=== PATIENT | female | born 1975 | race Caucasian/White ===

== ENCOUNTER → 2017-09-27 | Outpatient (CLI) | payer OTHER ==
[~2017-09-27] MED LIST: BIRTH CONTROL; CYCL10TA50
== END | disposition home or self-care (01) ==
LOC: CFH 10:23
PROVIDERS: ATTEND Nurse Practitioner Family
DX: Z12.31 Encounter for screening mammogram for malignant neoplasm of breast (principal)
CPT/HCPCS: G0202

== ENCOUNTER → 2017-10-22 | Outpatient (CLI) | payer OTHER | END | disposition home or self-care (01) | LOC: CFH 11:26 | PROVIDERS: ATTEND Obstetrics & Gynecology | DX: N80.9 Endometriosis, unspecified (principal); N91.2 Amenorrhea, unspecified | CPT/HCPCS: 76830 ==

== ENCOUNTER 2018-11-18 13:13 | Outpatient (CLI) | payer OTHER | END 2018-11-18 23:59 | disposition home or self-care (01) | LOC: CFH 13:13 | PROVIDERS: ATTEND Physician Assistant | DX: N64.4 Mastodynia (principal) | CPT/HCPCS: G0279; 77066 ==

== ENCOUNTER → 2020-07-02 | Outpatient (CLI) | payer OTHER | END | disposition home or self-care (01) | LOC: CVU 06:47 | PROVIDERS: ATTEND Internal Medicine Cardiovascular Disease | DX: I08.0 Rheumatic disorders of both mitral and aortic valves (principal) | CPT/HCPCS: 93306 ==

== ENCOUNTER → 2020-10-07 | Outpatient (CLI) | payer OTHER | END | disposition home or self-care (01) | LOC: CFH 07:02 | PROVIDERS: ATTEND Obstetrics & Gynecology | DX: Z12.31 Encounter for screening mammogram for malignant neoplasm of breast (principal); Z12.39 Encounter for other screening for malignant neoplasm of breast | CPT/HCPCS: 76641; 77063; 77067 ==

== ENCOUNTER 2020-10-30 11:35 | Emergency (ER) | payer OTHER ==
[~2020-10-30] VITALS: Ht 162.6 cm; Wt 101.7 kg
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
--- NOTE | 2020-10-30 12:01 | NUR ---
ERP DR. STANLEY AT BEDSIDE FOR RE-EVAL.
[2020-10-30] MEDS ORDERED: METHOCARBAMOL 750 MG TABLET ONE (12:18)
[2020-10-30] MEDS ORDERED: KETOROLAC 30 MG/1 ML ONE (12:18)
[2020-10-30] MEDS ORDERED: METHOCARBAMOL 750 MG TABLET PO ONE (12:30)
[2020-10-30] MEDS ORDERED: KETOROLAC 30 MG/1 ML IM ONE (12:30)
[2020-10-30 12:45] VITALS: BP 138/59
--- NOTE | 2020-10-30 12:46 | NUR ---
PT RESTING ON [facility]ASH[facility]. LATRICE. VSS. XR AT BEDSIDE.
--- NOTE | 2020-10-30 13:02 | NUR ---
PT CHART REVIEWED AND PLACED FOR RECHECK.
== END 2020-10-30 13:33 | disposition home or self-care (01) ==
LOC: ED 13:20
DX: S16.1XXA Strain of muscle, fascia and tendon at neck level, initial encounter (principal); S29.8XXA Other specified injuries of thorax, initial encounter; S29.011A Strain of muscle and tendon of front wall of thorax, initial encounter; V49.49XA Driver injured in collision with other motor vehicles in traffic accident, initial encounter; Y93.89 Activity, other specified; Y92.410 Unspecified street and highway as the place of occurrence of the external cause; Y99.8 Other external cause status
CPT/HCPCS: 71045; 72125; 96372; 99284; J1885